=== PATIENT | male | born 1940 | race Caucasian/White ===

== ENCOUNTER 2020-06-23 10:32 | Emergency (ER) | payer SELFPAY ==
[~2020-06-23] VITALS: Ht 177.8 cm; Wt 79.4 kg
[2020-06-23 10:39] VITALS: BP 137/91
[2020-06-23] MEDS ORDERED: TDAP [DIPH/PERTUSSIS/TET] 0.5 ML VIAL IM ONE ×3 (11:00→11:23)
--- NOTE | 2020-06-23 12:27 | NUR ---
Patient awake alert patient is homeless signed refused usp @ this time .DC home intruction given agrees to see PMd in AM prescription given .
--- NOTE | 2020-06-23 12:34 | NUR ---
Patient able to ambulate non difficulties .
== END 2020-06-23 12:35 | disposition home or self-care (01) ==
LOC: ER 10:39
DX: L03.116 Cellulitis of left lower limb (principal); Z59.0 Homelessness
CPT/HCPCS: 73630-TC; 90715